=== PATIENT | female | born 1970 | race Caucasian/White ===

== ENCOUNTER 2021-05-19 08:42 | Day surgery (SDC) | payer OTHER ==
[2021-05-19 08:39] LABS: Specific Gravity 1.015 (1.005-1.030); Urine Appearance CLEAR (Clear); Urine Bilirubin NEGATIVE (Negative); Urine Blood NEGATIVE (Negative); Urine Color YELLOW (Yellow); Urine Glucose NEGATIVE (Negative); Urine Microscopic Reflex NO UMIC; Urine Protein NEGATIVE (Negative); Urine Specific Gravity 1.015 (1.005-1.030); Urine Urobilinogen 0.2 mg/dL (0.2-1.0); Urine pH 5.5 (5.0-7.0)
[2021-05-19 08:41] LABS: Absolute Lymphocytes (CBC) 1.3 K/uL (0.7-4.9); Basophils % 1.1 % (0-1.3); Hematocrit 41.1 % (36.0-45.0); Lymphocytes % 28.7 % (15.3-44.8); MPV 8.3 fL (7.6-11.3); RBC Red Blood Cell Count 4.37 M/uL (3.86-4.86)
[2021-05-19] MEDS ORDERED: CEFAZOLIN SODIUM 1 GM/VIAL ONE ×2 (09:05→10:38)
[2021-05-19] MEDS ORDERED: Mastisol Adhesive Liq ONE (09:05)
[2021-05-19] MEDS ORDERED: GENTAMICIN SULF 80 MG/2ML INJ ONE (09:05)
[2021-05-19] MEDS ORDERED: Ringers Lactate 1,000 ML IV ONE ×3 (09:05→14:30)
[2021-05-19] MEDS ORDERED: NS 0.9% VIAL 30 ML ONE (09:05)
[2021-05-19] MEDS ORDERED: LIDOCAINE 1% W/EPI 1:100,000 MDV 20 ML VIAL ONE (09:05)
[2021-05-19] MEDS ORDERED: CEFAZOLIN/SWI 1gm 1 GM/10 ML SYR ONE (09:18)
[2021-05-19] MEDS ORDERED: SCOPOLAMINE HYDROBROMIDE PATCH TD ONE (09:21)
[2021-05-19] MEDS ORDERED: propofoL 200 MG/20 ML VIAL IV ONE (09:35)
[2021-05-19] MEDS ORDERED: NS 0.9% VIAL 10 ML ONE ×3 (09:35→14:23)
[2021-05-19] MEDS ORDERED: ONDANSETRON 4 MG/2 ML VIAL ONE (09:35)
[2021-05-19] MEDS ORDERED: ROCURONIUM 50 MG/5 ML VIAL IV ONE (09:35)
[2021-05-19] MEDS ORDERED: MIDAZOLAM HCL 2 MG/2 ML INJ ONE (09:35)
[2021-05-19] MEDS ORDERED: VECURONIUM 10 MG/VIAL IV ONE (09:35)
[2021-05-19] MEDS ORDERED: FENTANYL CITR 250 MCG/5 ML ONE (09:35)
[2021-05-19] MEDS ORDERED: LIDOCAINE 2% MPF 5 ML VIAL ONE (09:35)
[2021-05-19] MEDS ORDERED: KETOROLAC 30 MG/ML INJ ONE (09:35)
[2021-05-19] MEDS ORDERED: dexAMETHasone 10 MG/ML VIAL ONE (09:35)
--- NOTE | 2021-05-19 10:22 | RAD REPORT ---
EXAM DESCRIPTION: Jesse Luna And Marta (2 Views)05/19/2021 9:05 am CLINICAL HISTORY: Preop for breast surgery COMPARISON: None FINDINGS: The lungs are mildly hyperaerated. The lungs appear clear of acute infiltrate. The heart is normal size IMPRESSION: No acute abnormalities displayed
[2021-05-19] MEDS ORDERED: EPHEDRINE SULF 50 MG/ML VIAL ONE (12:17)
--- NOTE | 2021-05-19 12:57 | EKG ---
Test Date: 2021-05-19 Test Time: 07:18:49 Family Coach: VIRIDIANA MEASUREMENT RESULTS: Intervals: Rate: 56 MS: 148 QRSD: 74 QT: 428 QTc: 413 [place]: P: 17 MS: 148 QRS: 27 T: 44 INTERPRETIVE STATEMENTS: Sinus bradycardia Low voltage QRS Cannot rule out Anterior infarct, age undetermined Abnormal ECG No previous ECG available for comparison Electronically Signed On 05-19-21 12:56:13 CDT by Darci Mcmahon
[2021-05-19] MEDS ORDERED: MORPHINE 10 MG/ML VIAL ONE (14:23)
[2021-05-19] MEDS: FENTANYL CITR 100 MCG/2 ML ONE ×2 (15:10→15:17)
[2021-05-19] MEDS ORDERED: HYDROCODONE/APAP 7.5/325 MG TAB ONE (16:12)
[2021-05-19 16:59] VITALS: BP 112/63; TEMP 98; O2SAT 99
--- NOTE | 2021-05-19 19:45 | OP ---
Surgeon: Federico Tena MD Preoperative Diagnosis: Breast enlargement and descent. Postoperative Diagnosis: Breast enlargement and descent. Procedure Performed: Lift. Anesthesia: General. Procedure In Detail: After satisfactory induction of general anesthesia, the breast was prepped with DuraPrep, dry sterile drapes were applied in the usual manner. A 5 cm template was used to outline the right and left areola and then a transverse curvilinear incision was made. Then, the skin was de -epithelialized with dermabrader and tenotomy scissors. Then, a transverse incision was made with el ectrocautery. Flaps were elevated from sternum, clavicle, anterior axillary line. Then, the inferio r incision was made. The tissue was formed into a cone with 2-0 PDS suture. Excess breast tissue wa s removed prior to the conization. The straps were elevated at 12 o'clock, 1:30, and 3 o'clock posit ion and then the straps were woven in and out of the pectoral muscle back to the base of the cone, pe ctoral muscle back to the cone, tied themselves with 2-0 PDS. This was done for 12 o'clock, 1:30 str ap. The 3 o'clock strap was sewn over the sternum at 3 o'clock position with 2-0 Ethibond. Left bianka e done in mirror-image manner. The patient then was marked out for the dog ears and the patient retu rned supine. The dog ears were excised and the wounds were then irrigated with antibiotic solution. A 10 MAGGIE was brought out of the axilla, sewn with 2-0 silk. Wound closed with 3-0 Vicryl subcu and 3 -0 PDS running subcuticular fashion, tied from medial to lateral, lateral to medial, tied in the vert ical meridian. The patient was then sat up. Site for new nipple-areolar complex was marked out. Ti ssue cored out with a 5 cm template. Nipple-areolar complex sewn with interrupted 4-0 PDS followed b y 4-0 PDS running subcuticular. Dressings of tincture of benzoin, Steri-Strips followed by Esmarch, fluffs and Maurice wrap. The patient tolerated the procedure well. The amount removed from the right breast was 212, left 204. GH/MODL Voice ID: [id number] Report ID: [id number]
== END 2021-05-19 16:50 | disposition home or self-care (01) ==
LOC: OR 08:42
PROVIDERS: ATTEND Specialist
PROC: 0HSV0ZZ Reposition Bilateral Breast, Open Approach (ICD-10-PCS; principal; 2021-05-19 09:00)
DX: N64.81 Ptosis of breast (principal)
CPT/HCPCS: 93005; 85025; 36415; 81025; 88305; 81003; 71046; 19316; J2704; J1580; J2250; J3010 ×2; J1100; J0690 ×3; J7120 ×3; J2405